=== PATIENT | female | born 1965 | race Caucasian/White ===

== ENCOUNTER 2018-02-23 17:23 | Emergency (ER) | payer OTHER ==
[2018-02-23 17:33] VITALS: BMI 34.7
[2018-02-23 17:43] VITALS: BP 201/105
--- NOTE | 2018-02-23 18:17 | DR.GENAD ---
HPI - PCP Primary Care Physician: Shonda Leroy - HPI Comment HPI Comment: PATIENT IS WEAK AND FATIGUE. FEEL HER OVARIES ARE GOING TO RUPTURE. - Complaint/Symptoms Chief Complaint Doctors Comments: PATIENT ON DOXYCYLINE FOR PELVIC INFECTION. CONTINUE TO HAVE ABDOMINAL AND PELVIC PAIN. FEEL HER ORGANS FROM UNDER BREAST PUSHING INTO HER VAGINAL. ABDOMINAL DISTENSION AND BLOATING IS WORSE TODAY. NO FEVER OR DYSURIA. NAUSEA PRESENT BUT NO VOMITING. Chief Complaint:: Last pt was found to have enlarged uterus on xray. Has seen family doctor. Since then pain has been worsening under both breast running down abdomen all the way to vagina. C/O hot flashes and extreme weakness. Self Treatment fo Chief Complaint: Excedrin x2 with no relief. [id number] BID since 02/14/18 - Nurses notes reviewed Nurses Notes Review: Yes - Source History Provided: Patient - Mode of Arrival Mode of Arrival: Ambulatory - Timing Onset of Chief Complaint: 02/20/18 Came on: Suddenly - Duration Duration: Constant Duration: Days PMH - PMH Past Medical History: Yes Past Medical History: Depression Past Medical History Comment: Fibromyalgia, insomnia Past Surgical History: Yes Surgical History: Cholecystectomy Past Surgical History Comment: tubal ligation - Family History History of Family Medical Conditions: Yes Family Medical History: Diabetes Mellitus, [place], Coronary Artery Disease - Social History Does patient currently use any type of tobacco product: No Have you used tobacco products in the last 12 months: No Type of Tobacco Use: None Does any household member use tobacco: No Alcohol Use: Rarely Do you use any recreational Drugs:: No Lives With: Spouse Lives Where: Home - infectious screening In the last 2 months have you had wt loss of >10#?: NO Have you had fever, night sweats or hemotysis?: No Have you traveled outside the country in the last 6 months?: No Isolation: Standard ROS - Review of Systems Constitutional: Weakness, Fatigue. negative: Chills, Fever Eyes: No Symptoms Reported. negative: Eye Pain, Discharge, Photophobia ENTM: No Symptoms Reported. negative: Ear Pain, Nose Discharge, Nose Congestion , Throat Pain Respiratoy: Short of Breath. negative: Productive Cough, Non-Productive Cough, Wheezing, Hemoptysis Cardiovascular: No Symptoms Reported. negative: Chest Pain, Palpitations Gastrointestinal/Abdominal: Abdominal Pain, Nausea. negative: Constipation, Diarrhea, Vomiting Genitourinary: Pain. negative: Dysuria, Frequency, Hematuria Neurological: Weakness. negative: Headache, Dizziness Musculoskeletal: Muscle Pain Integumentary: No Symptoms Reported Hematologic/Lymphatic: No Symptoms Reported Endocrine: No Symptoms Reported All Other Systems: Reviewed and Negative PE - Vital Signs Vitals: Temperature 97.1 F Pulse Rate [Left Radial] 85 Pulse Rate 79 Respiratory Rate 20 Blood Pressure [Right Arm] 201/105 Blood Pressure 212/91 O2 Sat by Pulse Oximetry 100 - General Limitations: No Limitations General Appearance: Alert - Head Head Exam: Normal Inspection - Eyes Eye exam: Normal Appearance - ENT ENT Exam: Normal External Ear Exam External Ear Exam: Normal External Inspection TM/Canal Exam: Bilateral Normal Nose Exam: Normal Nose Exam Mouth Exam: Normal Inspection Throat Exam: Normal Inspection - Neck Neck Exam: Trachea Midline - Chest Chest Inspection: Symmetric Chest Wall Rise - Respiratory Respiratory Exam: Normal Lung Sounds Bilat - Cardiovascular Cardiovascular Exam: Regular Rate, Normal Rhythm, Normal Heart Sounds - Abdominal Exam Abdominal Exam: Normal Bowel Sounds, Soft, Tenderness Abdominal Tenderness: Diffuse, Moderate - Extremities Extremities Exam: Normal Inspection - Back Back Exam: Normal Inspection - Neurologic Neurological Exam: Alert, Oriented X3 - Psychiatric Psychiatric Exam: Normal Affect, Normal Mood - Skin Skin Exam: Normal Color MDM - Additional Information Additional Information Obtained From: Family - Differential Diagnosis Differential Diagnosis: ABDOMINAL PAIN, PELVIC PAIN, UTI, KIDNEY STONE Course - Treatment Treatment: SEE ORDERS. IM TORADOL AND PHENERGAN AND DEMOROL, PAIN IMPROVED. - Reevaluation 1st: Improved - Education/Counseling Education/Counseling: Patient, Family, Education Educated On: Treatment, Diagnosis, Needs for Follow Up ROR - Labs Reviewed Laboratory Results Reviewed?: Yes Result Diagrams: 02/23/18 18:29 02/23/18 18:29 Laboratory: WBC 7.6 X10^3/uL (3.6-10.0) 02/23/18 18: RBC 4.73 X10^6/uL (3.5-5.4) 02/23/18 18:29 Hgb 14.0 g/dL (12.0-16.0) 02/23/18 18:29 Hct 40.9 % (36.0-47.0) 02/23/18 18: MCV 86.5 fL (80.0-100.0) 02/23/18 18: MCH 29.7 pg (27.0-34.0) 02/23/18 MCHC 34.3 g/dL (33.0-35.0) 02/23/18 RDW 12.0 % (11.6-16.5) 02/23/18 Plt Count 377 X10^3/uL (150.0-450.0) 02/23/18 MPV 7.6 fL (7.4-11.0) 02/23/18 Neut % (Auto) 44.0 % (42.0-75.0) 02/23/18 Lymph % (Auto) 46.5 % (21.0-51.0) 02/23/18: [place] % (Auto) 7.2 % (0.0-13.0) 02/23/18 Eos % (Auto) 1.5 % (0.9-2.9) 02/23/18 Baso % (Auto) 0.8 % (0.2-1.0) 02/23/18 Neut # (Auto) 3.4 x10^3/uL (2.2-4.8) 02/23/18 Lymph # (Auto) 3.5 X10^3/uL (1.3-2.9) H 02/23/18: [place] # (Auto) 0.5 x10^3/uL (0.3-0.8) 02/23/18 Eos # (Auto) 0.1 x10^3/uL (0.0-0.2) 02/23/18 Baso # (Auto) 0.1 X10^3/uL (0.0-0.1) 02/23/18 Absolute Nucleated RBC 0.1 /100WBC 02/23/18 Sodium 141 mmol/L (136-145) 02/23/18 Corrected Sodium TNP 02/23/18 Potassium 3.4 mmol/L (3.5-5.1) L 02/23/18 Chloride 104 mmol/L (98-107) 02/23/18 Carbon Dioxide 27.1 mmol/L (21-32) 02/23/18: BUN 13 mg/dL (7-18) 02/23/18 18: Creatinine 0.76 mg/dL (0.55-1.02) 02/23/18 18: Est GFR (MDRD) Af Amer > 60 (>60) 02/23/18 18: Est GFR (MDRD) Non-Af > 60 (>60) 02/23/18 18: Glucose 98 mg/dL (65-99) 02/23/18 18: Calcium 8.7 mg/dL (8.5-10.1) 02/23/18 18: Corrected Calcium TNP 02/23/18: Total Bilirubin 0.40 mg/dL (0.2-1.0) 02/23/18 18: AST 21 Units/L (15-37) 02/23/18 18: ALT 27 Units/L (12-78) 02/23/18 18: Alkaline Phosphatase 76 Units/L (46-116) 02/23/18 18: Total Protein 8.4 g/dL (6.4-8.2) H 02/23/18 18: Albumin 4.3 g/dL (3.4-5.0) 02/23/18 18: Globulin 4.1 g/dL (2.5-4.5) 02/23/18 18: Albumin/Globulin Ratio 1.0 Ratio (1.1-2.1) L 02/23/18 18: Amylase 70 Units/L (25-115) 02/23/18 18: Lipase 196 Units/L (73-393) 02/23/18 18:29 Specimen Type Clean catch urine 02/23/18 18:56 Urine Color Yellow (YELLOW) 02/23/18 18:56 Urine Appearance Clear (CLEAR) 02/23/18 18: Urine pH 6.5 (5.0 - 8.0) 02/23/18 18: Ur Specific [place] 1.020 (1.000-1.030) 02/23/18 18:56 Urine Protein Negative (NEGATIVE) 02/23/18 18:56 Urine Glucose (UA) Negative (NEGATIVE) 02/23/18 18: Urine Ketones Negative (NEGATIVE) 02/23/18 18:56 Urine Occult Blood 1+ (NEGATIVE) 02/23/18 18:56 Urine Nitrite Negative (NEGATIVE) 02/23/18 18:56 Urine Bilirubin Negative (NEGATIVE) 02/23/18 18:56 Urine Urobilinogen Normal (NORMAL) 02/23/18 18:56 Ur Leukocyte Esterase Negative (NEGATIVE) 02/23/18 18:56 Urine RBC 0-2 /HPF (NONE SEEN) 02/23/18 18:56 Urine WBC None seen /HPF (NONE SEEN) 02/23/18 18:56 Ur Squamous Epith Cells Few /HPF (NEGATIVE) 02/23/18 18:56 Urine Bacteria Negative /HPF (NEGATIVE) 02/23/18 18:56 Ur Culture Indicated? No/not indicated 02/23/18 18:56 - XRAY XRAY Interpreted by: Radiologist XRAY Findings: REPORT DISCUSS WITH PATIENT. - Diagnosis Discharge Problem: Abdominal pain Qualifiers: Abdominal location: generalized Qualified Code(s): R10.84 - Generalized abdominal pain - Discharge Plan Disposition: 01 HOME, SELF-CARE Condition: Stable - Follow ups/Referrals Follow ups/Referrals: SHONDA LEROY [Primary Care Provider] - 3 days - Instructions Instructions: Abdominal Pain, Adult, [id number] Additional Instructions: RETURN TO ED IF WORSE.
[2018-02-23] MEDS ORDERED: TORADOL 60 MG VIAL IM ONE (18:18)
[2018-02-23] MEDS ORDERED: TORADOL 60 MG VIAL ONE (18:21)
[2018-02-23 18:39] LABS: BASOPHILS # (AUTO) 0.1 X10^3/uL (0.0-0.1); BASOPHILS % (AUTO) 0.8 % (0.2-1.0); EOSINOPHILS # (AUTO) 0.1 x10^3/uL (0.0-0.2); EOSINOPHILS % (AUTO) 1.5 % (0.9-2.9); HEMATOCRIT 40.9 % (36.0-47.0); LYMPHOCYTES # (AUTO) 3.5 X10^3/uL (1.3-2.9); LYMPHOCYTES % (AUTO) 46.5 % (21.0-51.0); MEAN CORPUSCULAR HEMOGLOBIN 29.7 pg (27.0-34.0); MEAN CORPUSCULAR HGB CONC 34.3 g/dL (33.0-35.0); MEAN CORPUSCULAR VOLUME 86.5 fL (80.0-100.0); MEAN PLATELET VOLUME 7.6 fL (7.4-11.0); MONOCYTES # (AUTO) 0.5 x10^3/uL (0.3-0.8); MONOCYTES % (AUTO) 7.2 % (0.0-13.0); NEUTROPHILS # (AUTO) 3.4 x10^3/uL (2.2-4.8); PLATELET COUNT 377 X10^3/uL (150.0-450.0); RED BLOOD COUNT 4.73 X10^6/uL (3.5-5.4); WHITE BLOOD COUNT 7.6 X10^3/uL (3.6-10.0)
[2018-02-23 18:46] LABS: ALANINE AMINOTRANSFERASE 27 Units/L (12-78); ALBUMIN 4.3 g/dL (3.4-5.0); ALKALINE PHOSPHATASE 76 Units/L (46-116); AMYLASE 70 Units/L (25-115); ASPARTATE AMINO TRANSFERASE 21 Units/L (15-37); BLOOD UREA NITROGEN 13 mg/dL (7-18); CALCIUM 8.7 mg/dL (8.5-10.1); CARBON DIOXIDE 27.1 mmol/L (21-32); CHLORIDE 104 mmol/L (98-107); CREATININE 0.76 mg/dL (0.55-1.02); LIPASE 196 Units/L (73-393); SODIUM 141 mmol/L (136-145); TOTAL PROTEIN 8.4 g/dL (6.4-8.2); eGFR BLACK RACES > 60 (>60); eGFR NON BLACK RACES > 60 (>60)
--- NOTE | 2018-02-23 18:52 | CT ---
CT ABDOMEN AND PELVIS WITHOUT CONTRAST CLINICAL HISTORY: 52-year-old female with abdominal pain. COMPARISON: None. TECHNIQUE: Multiple contiguous computed tomographic axial images of the abdomen and pelvis were obtai carli without the use of oral or intravenous contrast. Images were reformatted in the coronal and sagit rafa planes. FINDINGS: The lung bases demonstrate no evidence of focal air-space opacification, pleural effusion, pneumothor ax, or suspicious pulmonary nodules. The imaged inferior mediastinum and heart are normal in appeara nce without evidence of pericardial effusion. The liver, pancreas, and spleen are within normal limits for noncontrast imaging. Status post cholecy stectomy. The adrenal glands and kidneys are normal bilaterally. There are no nephroureteral stones or perineph jamil fluid collections. There is no evidence of hydroureteronephrosis and the ureters run in an unobst ructed course to a well distended urinary bladder. The uterus is anteverted and normal in size. The ovaries, vagina and perineum are within normal limi ts. Multiple pelvic phleboliths are present. The appendix is normal in appearance. The bowel is without obstruction or inflammation and there is no free fluid or free air within the peritoneal cavity. There are no pathologically enlarged lymph n odes in the abdomen or pelvis. The arteriovascular structures are within normal limits for a study without contrast. Soft tissues are normal. The osseous structures are intact without fracture or malalignment. IMPRESSION: No acute intra-abdominal or intrapelvic process to account for patient's symptoms.. Reported By:
[2018-02-23 19:00] LABS: BILIRUBIN,URINE NEGATIVE (NEGATIVE); BLOOD/HEMOGLOBIN,URINE 1+ (NEGATIVE); GLUCOSE, URINE NEGATIVE (NEGATIVE); KETONES,URINE NEGATIVE (NEGATIVE); LEUKOCYTE ESTERASE ,URINE NEGATIVE (NEGATIVE); NITRITES,URINE NEGATIVE (NEGATIVE); PH,URINE 6.5 (5.0 - 8.0); PROTEIN,URINE NEGATIVE (NEGATIVE); UROBILINOGEN,URINE NORMAL (NORMAL)
[2018-02-23 19:14] LABS: APPEARANCE,URINE CLEAR (CLEAR); COLOR,URINE YELLOW (YELLOW); RBC,URINE 0-2 /HPF (NONE SEEN)
[2018-02-23 19:15] LABS: BACTERIA,URINE NEGATIVE /HPF (NEGATIVE); SQUAMOUS EPITHELIAL CELL,UR FEW /HPF (NEGATIVE)
[2018-02-23] MEDS ORDERED: MICRO K EXTEN CAP 10 MEQ PO ONE ×2 (19:18→20:01)
[2018-02-23] MEDS ORDERED: DEMEROL INJ IVP ONE (19:40)
[2018-02-23] MEDS ORDERED: PHENERGAN INJ 25 MG IM ONE (19:41)
[2018-02-23] MEDS ORDERED: PHENERGAN INJ 25 MG ONE (19:58)
[2018-02-23] MEDS ORDERED: DEMEROL INJ ONE (19:59)
== END 2018-02-23 20:15 | disposition home or self-care (01) ==
LOC: ER 17:51
DX: R10.84 Generalized abdominal pain (principal)
CPT/HCPCS: 36415; 74176; 80053; 81001; 82150; 83690; 85025; 99282; 99283; 99284; J1885; J2175; J2550